=== PATIENT | female | born 1950 | race Caucasian/White ===

== ENCOUNTER 2017-08-27 09:52 | Inpatient (IN) | payer OTHER ==
[2017-08-27] MEDS ORDERED: LIDOCAINE 1% 2 ML INJ ID PRN (10:23)
[2017-08-27] MEDS ORDERED: LR 1,000 ML IV ONE (10:23)
[2017-08-27] MEDS ORDERED: MIDAZOLAM 2 MG/2 ML VIAL IVP ONE (10:31)
--- NOTE | 2017-08-27 10:32 | PDANEPAE ---
ANE History of Present Illness Patient presents for partial gastrectomy ANE Past Medical History - Cardiovascular History Hx Hypertension: No Hx Arrhythmias: No Hx Chest Pain: No Hx Coronary Artery / Peripheral Vascular Disease: No Hx CHF / Valvular Disease: No Hx Palpitations: No - Pulmonary History Hx COPD: No Hx Asthma/Reactive Airway Disease: No Hx Recent Upper Respiratory Infection: No Hx Oxygen in Use at Home: No Hx Sleep Apnea: No Sleep Apnea Screening Result - Last Documented: Negative - Neurologic History Hx Cerebrovascular Accident: No Hx Seizures: No Hx Dementia: No - Endocrine History Hx Diabetes: No - Renal History Hx Renal Disorders: Yes Renal History Comment: UTI - - Liver History Hx Hepatic Disorders: No - Neurological & Psychiatric Hx Hx Neurological and Psychiatric Disorders: Yes Neurological / Psychiatric History Comment: "BACK HURTS ALL THE TIME- BUT NOT A SPINAL PROBLEM". DEPRESSION -USES 5 HTP - Cancer History Hx Cancer: Yes Cancer History Comment: PRE CANCEROUS LESION-STOMACH - Congenital Disorder History Hx Congenital Disorders: No - GI History Hx Gastrointestinal Disorders: Yes Gastrointestinal History Comment: STOMACH MASS - Other Health History Other Health History: RED RASH -R ARM,3 [place] EAR TUBES FOR "PLUGGED EUSTACHIAN TUBE". - Chronic Pain History Chronic Pain: Yes (BACK PAIN) - Surgical History Prior Surgeries: HYSTERECTOMY. L FT SURGERY. EAR TUBES -UNDER LOCAL. ENDOSCOPIES ANE Review of Systems Review of Systems: - Exercise capacity METS (RN): 4 METS ANE Patient History - Allergies Allergies/Adverse Reactions: Penicillins Allergy (Severe, Verified 08/20/17 11:27) Other-Enter Comments Sulfa (Sulfonamide Antibiotics) Allergy (Severe, Verified 08/20/17 11:27) Rash - Home Medications Home medications: home medication list seen and reviewed Home Medications: Ascorbic Acid [Vitamin C 500 mg (*)] 500 mg PO DAILY 08/16/17 [Last Taken Unknown] Calcium Citrate W/Vit D [Citracal + D (OTC)] 315 mg PO DAILY 08/16/17 [Last Taken Unknown] Cholecalciferol (Vitamin D3) [Vitamin D3] 5,000 unit PO DAILY 08/16/17 [Last Taken Unknown] Cyanocobalamin [Vitamin B12 (*)] 1,000 mcg PO DAILY 08/16/17 [Last Taken Unknown ] Folic Acid 0.8 mg PO DAILY 08/16/17 [Last Taken Unknown] Herbals/Supplements -Info Only 1 ea PO DAILY 08/16/17 [Last Taken Unknown] Multivitamins [Multivitamin (*)] 1 each PO DAILY 08/16/17 [Last Taken Unknown] [place]-3S/Dha/Epa/Fish Oil [Fish Oil 1,200 mg Softgel] 3,600 mg PO DAILY [Last Taken Unknown] 5-Htp 08/20/17 [Last Taken Unknown] - NPO status NPO Status: no food or drink >8 hours - Anes Hx Anes Hx: no prior problems - Smoking Hx Smoking Status: Former smoker ANE Labs/Vital Signs - Vital Signs Height: 167.64 cm Weight: 65.998 kg ANE Physical Exam - Airway Neck exam: FROM Mallampati Score: Class 2 Mouth exam: normal dental/mouth exam, small mouth opening - Pulmonary Pulmonary: no respiratory distress - Cardiovascular Cardiovascular: regular rate and rhythym - ASA Status ASA Status: II ANE Anesthesia Plan Anesthesia Plan: general endotracheal anesthesia (RBA discussed)
--- NOTE | 2017-08-27 10:32 | PDHPUP ---
History & Physical Update H&P update statement: This history and physical update is based on an assessment of the patient which was completed after admission or registration (within 24 hours), but prior to the surgery/procedure. H&P update: H&P reviewed & patient examined, no change in patient's condition since H&P completed
[2017-08-27] MEDS ORDERED: ZOLPIDEM TARTRATE 5 MG TAB PO PRN (10:33)
[2017-08-27] MEDS ORDERED: HYDROmorphONE/DILAUDID 1 MG/ML INJ IVP PRN (10:33)
[2017-08-27] MEDS ORDERED: ONDANSETRON 4 MG/2 ML VIAL IVP PRN ×2 (10:33→13:19)
[2017-08-27] MEDS ORDERED: BUPIVACAINE 0.5% 30 ML SDV ONE (10:34)
[2017-08-27] MEDS ORDERED: CLINDAMYCIN 600 MG/DEXTROSE 50 ML IV ONE (10:56)
[2017-08-27] MEDS ORDERED: CLINDAMYCIN 600 MG/DEXTROSE/50 ML BAG IV ONE (11:00)
[2017-08-27] MEDS ORDERED: PROPOFOL 200 MG/20 ML VIAL ONE ×2 (11:01→11:26)
[2017-08-27] MEDS ORDERED: fentaNYL 100 MCG/2 ML INJ ONE ×2 (11:01→12:17)
[2017-08-27] MEDS ORDERED: ROCURONIUM 50 MG/5 ML VIAL ONE ×2 (11:01→11:37)
[2017-08-27] MEDS ORDERED: LIDOCAINE 2% 5 ML SDV ONE (11:03)
--- NOTE | 2017-08-27 11:09 | POSTOPPROG ---
Post Op Note Date of Operation: 08/27/17 Surgeon: Misael Moyer [employer]pscale Security Officer: Flory Pink PA-C Anesthesiologist: Jamey Mcleod Anesthesia: GET(General Endotracheal) Pre-op Diagnosis: Gastrointestinal stromal tumor Post-op Diagnosis: Gastrointestinal stromal tumor Procedure: Laparoscopic partial gastrectomy and GIST resection, endoscopy Findings: tumor with stomach margin, normal pylorus Inf/Abcess present in the surg proc area at time of surgery?: No EBL: Minimal Complications: no immediate Specimen(s): gastrointestinal stromal tumor of stomach antrum
[2017-08-27] MEDS ORDERED: DEXAMETHASONE 4 MG/ML VIAL ONE (11:34)
[2017-08-27] MEDS ORDERED: ONDANSETRON 4 MG/2 ML VIAL ONE (11:34)
[2017-08-27] MEDS ORDERED: PHENYLEPHRINE HCL 100 MCG/ML SYR ONE (11:41)
[2017-08-27] MEDS ORDERED: KETOROLAC 30 MG/1 ML SDV ONE (11:48)
[2017-08-27] MEDS ORDERED: SUGAMMADEX SODIUM 200 MG/2 ML VIAL IVP ONE (13:10)
[2017-08-27] MEDS ORDERED: fentaNYL 100 MCG/2 ML INJ IVP PRN (13:19)
[2017-08-27] MEDS ORDERED: LR 500 ML IV PRN (13:19)
[2017-08-27] MEDS ORDERED: NALOXONE HCL 0.4 MG/ML INJ IVP PRN (13:19)
[2017-08-27] MEDS ORDERED: HYDROCODONE/APAP 5/325 TAB PO PRN (13:19)
[2017-08-27] MEDS ORDERED: HYDROmorphONE/DILAUDID 2 MG/ML INJ IVP PRN (13:19)
[2017-08-27] MEDS ORDERED: oxyCODONE IR 5 MG TAB PO PRN (13:19)
--- NOTE | 2017-08-27 14:46 | PDMN ---
Medical Necessity Medical necessity: [facility] IP only surgery; cpt 43185 Partial Gastrectomy & GIST resection
[2017-08-27] MEDS: CLINDAMYCIN 600 MG/DEXTROSE 50 ML IV SCH ×2 (16:01→21:04)
[2017-08-27] MEDS: D5W 1/2 NS W/ 20 KCl/L 1,000 ML IV SCH (16:18)
[2017-08-27] MEDS: KETOROLAC 15 MG/1 ML SDV IVP SCH ×2 (16:31→18:13)
--- NOTE | 2017-08-27 16:36 | GOP ---
[f rep st] OPERATIVE REPORT DATE OF OPERATION: 08/27/2017 SURGEON: Misael Moyer MD BULL GANG SUPERVISOR: Flory Pink PA-C ANESTHESIA: General. ANESTHESIOLOGIST: PREOPERATIVE DIAGNOSIS: Gastrointestinal stromal tumor (GIST). POSTOPERATIVE DIAGNOSIS: Gastrointestinal stromal tumor (GIST). PROCEDURE PERFORMED: 1. Laparoscopic partial gastrectomy. 2. Intraoperative esophagogastroduodenoscopy. FINDINGS: INDICATIONS: A 67-year-old female with a recently diagnosed prepyloric GIST. She is undergoing surg ical excision at this time. Risks and benefits were explained of bleeding, infection, tumor recurren ce, need for additional adjuvant therapy, anastomotic leak, as well as others. All questions were an swered. She desires to proceed. A seo assistant is standard and necessary and customary for the safe performance of this procedu re. DESCRIPTION OF PROCEDURE: After general anesthesia was induced, the abdomen was pre-injected with 0. 5% Marcaine with epinephrine. A vertical supraumbilical incision was created. A [address] aced under direct visualization. Three additional upper abdominal 5 mm ports were inserted. The ángel or was easily identified by palpation just proximal to the pylorus. The stomach was elevated up into the operative field. Using the ultrasonic dissector, omentum was taken off the greater curve of the stomach, and was taken completely posteriorly allowing for a 360-degree assessment of the body and a ntrum of the stomach. No other visible abnormalities were identified. The tumor was close to the py lorus, but within a couple of centimeters. The tumor appeared to be approximately 5 cm in size. The mass was elevated up in the operative field. The distal antrum was able to be pinched together bene ath the level of the tumor allowing for a stapled resection to be completed. This was done with mult iple fires of the end-to-side RADHA stapler allowing for a couple centimeters of normal stomach beyond the visible mass. Tumor removed in its entirety and brought through the supraumbilical port site wit h an EndoCatch pouch. Satisfactory hemostasis was noted at the staple line. Visualized peritoneal, as well as liver surfaces all appeared normal. Intraoperative endoscopy was performed showing a norm al remaining stomach, as well as a patent pylorus, hemostatic suture line, and no visible tumor intra luminally. No bubbling was noted extra-luminally on simultaneous gastric assessment. Satisfactory h emostasis was assured. The omentum was placed over the staple line itself. Trocars were removed und er direct visualization. The supraumbilical midline fascia was closed with running Vicryl suture. T he wounds were closed with Monocryl suture followed by Dermabond. The patient was taken to recovery uneventfully. /[id number]/MODL
[2017-08-27] MEDS: FAMOTIDINE 20 MG/NACL 50 ML IV SCH (21:03)
[2017-08-28] MEDS: KETOROLAC 15 MG/1 ML SDV IVP SCH ×5 (00:40→23:57)
[2017-08-28] MEDS: D5W 1/2 NS W/ 20 KCl/L 1,000 ML IV SCH ×2 (00:52→11:56)
[2017-08-28] MEDS: CLINDAMYCIN 600 MG/DEXTROSE 50 ML IV SCH (06:47)
[2017-08-28] MEDS: FAMOTIDINE 20 MG/NACL 50 ML IV SCH ×2 (08:03→20:49)
--- NOTE | 2017-08-28 09:42 | ASMTCMCOM ---
CM Note CM Note Notes: Patient admitted for a laparascopic partial gastrectomy and GIST resection. She is POD #1 and doing well. Patient is normally independent, lives with Wiliam. No discharge needs identified, but Case Management can assist should they arise. Date Signed: 08/28/2017 09:42 AM Electronically Signed By:Kady Renae RN
[2017-08-28] MEDS ORDERED: PNEUMOC 13-VAL CONJ-DIP CRM/PF 0.5 ML SYR IM ONE (10:20)
--- NOTE | 2017-08-28 12:25 | SOAPPROG ---
SOAP Progress Note Assessment/Plan: Assessment: s/p partial gastrectomy and gastrointestinal stromal tumor removal of stomach antrum POD #1. Plan: Overall doing well postoperatively. Suggested to continue with clear fluids today, advance diet as tolerated. Buff cap. Discussed the role of ambulation and pulmonary toilet. May use Ambien tonight if trouble sleeping again. 08/28/17 17:53 Subjective: Trouble sleeping overnight. Pain well managed on current regimen with minimal postoperative abdominal pain. No nausea or vomiting. Complains of feeling bloated after fluid oral intake. Some throat discomfort when coughing. Has been ambulating well in room. Objective: Vital Signs Temp Pulse Resp BP Pulse Ox 36.8 C 55 L 16 122/65 H 97 08/28/17 11:48 08/28/17 11:48 08/28/17 11:48 08/28/17 11:48 08/28/17 11:48 08/27/17 08/28/17 08/29/17 05:59 05:59 05:59 Intake Total 2173 Output Total 820 Balance 1353 Physical Exam: General: alert and oriented, appears comfortable, afebrile HEENT: anicteric Skin: good turgor Heart: RRR Lungs: CTA bilaterally Abdomen: soft, mildly distended. Appropriate epigastric tenderness. Incisions healing nicely, no erythema, minimal tenderness. Extremities: unremarkable Neuro: nonfocal - Pending Discharge Pending Discharge Within 24 Hours: Yes Pending Discharge Within 48 Hours: Yes Pending Discharge Date: 08/29/17 Pending Discharge Time: 11:00 ICD10 Worksheet Patient Problems: Problems Problem Status Onset Stomach neoplasm Acute - ICD10 Problem Qualifiers (1) Stomach neoplasm
[2017-08-28] MEDS: HYDROCODONE/APAP 5/325 TAB PO PRN ×3 (16:05→20:51)
[2017-08-29] MEDS: KETOROLAC 15 MG/1 ML SDV IVP SCH (06:51)
[2017-08-29 07:29] VITALS: BP 131/67
[2017-08-29] MEDS: HYDROCODONE/APAP 5/325 TAB PO PRN ×2 (07:48→12:53)
[2017-08-29] MEDS: FAMOTIDINE 20 MG/NACL 50 ML IV SCH (07:49)
--- NOTE | 2017-09-02 19:50 | GOP ---
[f rep st] OPERATIVE REPORT DATE OF OPERATION: 08/27/2017 SURGEON: Al Crowe MD PREOPERATIVE DIAGNOSIS: POSTOPERATIVE DIAGNOSIS: PROCEDURE PERFORMED: Esophagogastroduodenoscopy. FINDINGS: DESCRIPTION OF PROCEDURE: This is an intraoperative procedure. The patient was already under anesth esia, and had undergone partial gastrectomy, wedge. The endoscope was then introduced into the oroph arynx and taken down through the esophagus to the stomach. There were no lesions noted within the es ophagus. The GE junction was approximately at 41 cm. The stomach was somewhat J-shaped. The wedge resection areas noted. There was no evidence of residual GIST tumor within the abdomen. The line wa s hemostatic. Intubation of the pylorus to just look into the bulb demonstrated patency of the dista l part of the stomach, pylorus and duodenum. There was no active bleeding from the suture sites. Th e air was withdrawn. The patient tolerated the procedure well. The endoscope was withdrawn. Circum ferential inspection of the stomach was performed on withdrawal. No gross abnormalities were noted. The patient tolerated the procedure well. The case was handed back over to Dr. Misael Moyer. Primary surgeon is Dr. Moyer for GIST tumor of the stomach. /[id number]/MODL
== END 2017-08-29 13:30 | disposition home or self-care (01) | DRG 544 ==
LOC: F3E 09:52
PROVIDERS: ADMIT Surgery; ATTEND Surgery
DX: C49.A2 Gastrointestinal stromal tumor of stomach (principal)
CPT/HCPCS: G0009; J1100; J1885; J2250; J2370; J2405; J2704; J3010